=== PATIENT | female | born 1995 | race Caucasian/White ===

== ENCOUNTER 2021-10-22 15:55 | Emergency (ER) | payer SELFPAY ==
[~2021-10-22] VITALS: Ht 160 cm; Wt 61.7 kg
[2021-10-22 16:07] VITALS: BP 94/56
[2021-10-22] MEDS ORDERED: NAPR-54 PO (17:24)
--- NOTE | 2021-10-22 18:05 | NUR ---
PT SEEN AND D/C BY DR VERDIN, NO NURSING INTERVENTIONS PROVIDED
--- NOTE | 2021-10-22 18:06 | NUR ---
Patient discharged with v/s stable. Written and verbal after care instructions ABOUT RADIAL NERVE PALSY given and explained. Patient alert, oriented and verbalized understanding of instructions. Ambulatory with steady gait. All questions addressed prior to discharge. ID band removed. Patient advised to follow up with PMD. Rx of NAPROXEN given. Patient educated on indication of medication including possible reaction and side effects. Opportunity to ask questions provided and answered.
== END 2021-10-22 18:06 | disposition home or self-care (01) ==
LOC: MED 15:55
DX: G56.32 Lesion of radial nerve, left upper limb (principal)
CPT/HCPCS: 99282